=== PATIENT | female | born 1990 | race Caucasian/White ===

== ENCOUNTER 2017-10-03 14:47 | Inpatient (IN) | payer OTHER ==
[~2017-10-03] VITALS: Ht 172.7 cm; Wt 109.0 kg
[~2017-10-03 14:47] MED LIST: IBUP800 PO; NUVA RING; OXYACE5T PO; Prenatal Compl1 EACH PO
[2017-11-28] MEDS ORDERED: Hair, Skin & N1 EACH PO (16:08)
[2017-11-28 16:29] LABS: BASOPHILS ABSOLUTE AUTO 0.01 K/mm3 (0.00-0.23); BASOPHILS PERCENT AUTO 0 % (0-2); EOSINOPHILS ABSOLUTE AUTO 0.17 K/mm3 (0.00-0.68); EOSINOPHILS PERCENT AUTO 2 % (0-6); Hematocrit 34.7 % (33.0-51.0); Hemoglobin 12.1 g/dL (11.5-16.0); IMMATURE GRAN ABSOLUTE AUTO 0.08 K/mm3 (0.00-0.10); IMMATURE GRAN PERCENT AUTO 1 % (0-1); LYMPHOCYTES ABSOLUTE AUTO 1.77 K/mm3 (0.84-5.20); LYMPHOCYTES PERCENT AUTO 16 % (21-46); MONOCYTES PERCENT AUTO 6 % (4-13); Mean Corpuscular HGB 30.5 pg (26.0-34.0); Mean Corpuscular HGB Conc 34.9 g/dL (31.5-36.5); Mean Corpuscular Volume 87 fL (80-100); Mean Platelet Volume 10.4 fL (9.1-12.4); NEUTROPHILS ABSOLUTE AUTO 8.46 K/mm3 (1.96-9.15); NEUTROPHILS PERCENT AUTO 76 % (41-73); Platelet Count 216 K/mm3 (150-400); RDW Coefficient Variation 13.2 % (11.7-14.2); RDW Standard Deviation 42.2 fL (35.1-46.3); Red Blood Cell Count 3.97 M/mm3 (3.80-5.20); White Blood Cell Count 11.19 K/mm3 (4.00-11.30)
[2017-11-30 10:36] LABS: PO2 Cord - Arterial 20.9 mmHg (16-20); pH Cord - Arterial 7.36 (7.28-7.35)
[2017-11-30 10:37] LABS: PCO2 Cord - Venous 37.7 mmHg (40-50); PO2 Cord - Venous 30.2 mmHg (28-32)
[2017-12-01 05:56] LABS: Hematocrit 27.6 % (33.0-51.0); Hemoglobin 9.4 g/dL (11.5-16.0); Mean Corpuscular HGB 29.8 pg (26.0-34.0); Mean Corpuscular HGB Conc 34.1 g/dL (31.5-36.5); Mean Corpuscular Volume 88 fL (80-100); Mean Platelet Volume 10.4 fL (9.1-12.4); Platelet Count 160 K/mm3 (150-400); RDW Coefficient Variation 13.4 % (11.7-14.2); RDW Standard Deviation 42.4 fL (35.1-46.3); Red Blood Cell Count 3.15 M/mm3 (3.80-5.20); White Blood Cell Count 8.87 K/mm3 (4.00-11.30)
[2017-12-02] MEDS ORDERED: Percocet 5-3251 EACH PO (08:13)
[2017-12-02] MEDS ORDERED: IBUP800 PO (08:14)
[2017-12-02] MEDS ORDERED: ONDA4 PO (08:14)
== END 2017-12-02 14:41 | disposition home or self-care (01) | DRG 766 ==
LOC: BC 11-30 07:45
PROVIDERS: Obstetrics & Gynecology
PROC: 10D00Z1 Extraction of Products of Conception, Low, Open Approach (ICD-10-PCS; principal; 2017-11-30 09:30)
DX: O34.211 Maternal care for low transverse scar from previous cesarean delivery (principal); O13.4 Gestational [pregnancy-induced] hypertension without significant proteinuria, complicating childbirth; O99.824 Streptococcus B carrier state complicating childbirth; O36.63X0 Maternal care for excessive fetal growth, third trimester, not applicable or unspecified; Z3A.39 39 weeks gestation of pregnancy; Z37.0 Single live birth; Z88.0 Allergy status to penicillin; Z87.891 Personal history of nicotine dependence
CPT/HCPCS: 36415; 82803; 85025; 85027; 86850; 86900; 86901; J0690; J1885; J2590; J2765; J3010; J7120

== ENCOUNTER 2021-03-31 07:39 | Inpatient (IN) | payer OTHER ==
[~2021-03-31] VITALS: Ht 172.7 cm; Wt 125.0 kg
[~2021-03-31 07:39] MED LIST changes: +Hair, Skin & N1 EACH PO; +ONDA4 PO; +Percocet 5-3251 EACH PO
[2021-03-31] MEDS ORDERED: VIT1CAPS12 (08:03)
[2021-03-31 09:02] LABS: BASOPHILS ABSOLUTE AUTO 0.02 K/mm3 (0.00-0.23); BASOPHILS PERCENT AUTO 0 % (0-2); EOSINOPHILS ABSOLUTE AUTO 0.15 K/mm3 (0.00-0.68); EOSINOPHILS PERCENT AUTO 1 % (0-6); Hematocrit 34.3 % (33.0-51.0); Hemoglobin 11.7 g/dL (11.5-16.0); IMMATURE GRAN ABSOLUTE AUTO 0.07 K/mm3 (0.00-0.10); IMMATURE GRAN PERCENT AUTO 1 % (0-1); LYMPHOCYTES ABSOLUTE AUTO 1.82 K/mm3 (0.84-5.20); LYMPHOCYTES PERCENT AUTO 17 % (21-46); MONOCYTES ABSOLUTE AUTO 0.68 K/mm3 (0.16-1.47); MONOCYTES PERCENT AUTO 7 % (4-13); Mean Corpuscular HGB 29.6 pg (26.0-34.0); Mean Corpuscular HGB Conc 34.1 g/dL (31.5-36.5); Mean Corpuscular Volume 87 fL (80-100); Mean Platelet Volume 10.5 fL (9.1-12.4); NEUTROPHILS ABSOLUTE AUTO 7.72 K/mm3 (1.96-9.15); NEUTROPHILS PERCENT AUTO 74 % (41-73); Platelet Count 212 K/mm3 (150-400); RDW Coefficient Variation 13.1 % (11.7-14.2); Red Blood Cell Count 3.95 M/mm3 (3.80-5.20); White Blood Cell Count 10.46 K/mm3 (4.00-11.30)
--- NOTE | 2021-03-31 12:34 | NUR ---
03/31/21 1234 Masha Caceres ANTIBIOTICS STARTED PRIOR TO ARRIVAL IN OR.
[2021-03-31 12:38] LABS: PCO2 Cord - Arterial 54 mmHg (40-50); PO2 Cord - Arterial 22.1 mmHg (16-20); pH Cord - Arterial 7.33 (7.28-7.35)
[2021-03-31 12:40] LABS: PCO2 Cord - Venous 43.6 mmHg (40-50); PO2 Cord - Venous 28.5 mmHg (28-32); pH Umbilical Cord - Venous 7.39 (7.26-7.35)
--- NOTE | 2021-03-31 14:16 | NUR ---
ASSUMED CARE OF PT AT 1400 FROM GILBERT HERNANDEZ. PT A/OX4 WITH VSS. CORBY WATER AND CRACKERS, DENIES N/V. IS CURRENTLY NB. SPOUSE AT BEDSIDE. REPORTS PAIN TOLERABLE AT THIS TIME. WILL CONT POST-OP ORDERS.
--- NOTE | 2021-03-31 15:30 | NUR ---
ABD INCISION REINFORCED WITH ABD/FOAM TAPE R/T TO INCREASED SS DRAINAGE. WILL CONT TO MONITOR FOR ABNORMAL ABD BLEEDING.
[2021-04-01 05:06] LABS: BASOPHILS ABSOLUTE AUTO 0.02 K/mm3 (0.00-0.23); BASOPHILS PERCENT AUTO 0 % (0-2); EOSINOPHILS ABSOLUTE AUTO 0.17 K/mm3 (0.00-0.68); EOSINOPHILS PERCENT AUTO 2 % (0-6); Hematocrit 30.4 % (33.0-51.0); Hemoglobin 10.6 g/dL (11.5-16.0); IMMATURE GRAN ABSOLUTE AUTO 0.06 K/mm3 (0.00-0.10); IMMATURE GRAN PERCENT AUTO 1 % (0-1); LYMPHOCYTES ABSOLUTE AUTO 1.67 K/mm3 (0.84-5.20); LYMPHOCYTES PERCENT AUTO 16 % (21-46); MONOCYTES PERCENT AUTO 6 % (4-13); Mean Corpuscular HGB 30.5 pg (26.0-34.0); Mean Corpuscular HGB Conc 34.9 g/dL (31.5-36.5); Mean Corpuscular Volume 87 fL (80-100); Mean Platelet Volume 10.4 fL (9.1-12.4); NEUTROPHILS ABSOLUTE AUTO 7.79 K/mm3 (1.96-9.15); NEUTROPHILS PERCENT AUTO 76 % (41-73); Platelet Count 193 K/mm3 (150-400); RDW Coefficient Variation 13.2 % (11.7-14.2); RDW Standard Deviation 41.7 fL (35.1-46.3); Red Blood Cell Count 3.48 M/mm3 (3.80-5.20); White Blood Cell Count 10.31 K/mm3 (4.00-11.30)
--- NOTE | 2021-04-01 14:03 | NUR ---
medipore dressing off, steri strips on, pt has not voided in shower yet.
[2021-04-02] MEDS ORDERED: IBUP800 PO (09:36)
[2021-04-02] MEDS ORDERED: Percocet 5-3251 EACH PO (09:37)
--- NOTE | 2021-04-02 10:08 | NUR ---
discharge instructions given to mother. questions answered and pt verbalizes understanding. declines to come back to [facility] for ppfu at this time. will follow up with dr canela within 2 weeks.
== END 2021-04-02 10:22 | disposition home or self-care (01) | DRG 785 ==
LOC: BC 07:39
PROVIDERS: ADMIT Obstetrics & Gynecology
PROC: 10D00Z1 Extraction of Products of Conception, Low, Open Approach (ICD-10-PCS; principal; 2021-03-31 11:30)
PROC: 0UT70ZZ Resection of Bilateral Fallopian Tubes, Open Approach (ICD-10-PCS; 2021-03-31 11:30)
DX: O34.211 Maternal care for low transverse scar from previous cesarean delivery (principal); Z30.2 Encounter for sterilization; N85.8 Other specified noninflammatory disorders of uterus; O24.420 Gestational diabetes mellitus in childbirth, diet controlled; Z3A.39 39 weeks gestation of pregnancy; Z37.0 Single live birth; Z88.0 Allergy status to penicillin; Z86.16 Personal history of COVID-19
CPT/HCPCS: 36415; 82803; 82947; 85025; 86850; 86900; 86901; A9270; J0690; J1885; J2250; J2370; J2405; J2590; J2765; J3010; J7120